=== PATIENT | female | born 1960 | race African-American/Black ===

== ENCOUNTER 2023-03-16 19:33 | Emergency (ER) | payer SELFPAY ==
[~2023-03-16] VITALS: Ht 167.6 cm; Wt 82.0 kg
[2023-03-16 19:56] VITALS: BP 185/78; PULSE 86; RESP 18; TEMP 99.3; O2SAT 100
[2023-03-16] MEDS ORDERED: IBUPROFEN 400MG TABLET PO ONE (20:00)
[2023-03-16] MEDS ORDERED: TETANUS, DIPHTHERIA, PERTUSSIS VAC/PF 0.5ML (>10YR OLD) IM ONE (20:00)
[2023-03-16] MEDS ORDERED: LIDOCAINE HCL 1%/EPI 1:200,000 30 ML VIAL MC ONE (20:00)
[2023-03-16] MEDS ORDERED: ACETAMINOPHEN 325MG TABLET PO NR (20:45)
[2023-03-16] MEDS ORDERED: LIDOCAINE HCL 1%/EPI 1:200,000 30 ML VIAL MC NR (21:30)
[2023-03-16] MEDS ORDERED: IBUPROFEN 100MG/5ML UDC PO ONE (23:00)
[2023-03-16] MEDS ORDERED: CLINDAMYCIN PHOSPHATE 300MG/2ML VIAL IM ONE (23:00)
[2023-03-16] MEDS ORDERED: MORPHINE SULFATE 10 MG/ML CPJ IM ONE (23:00)
[2023-03-16] MEDS ORDERED: CLINDAMYCIN PHOSPHATE 300MG/2ML VIAL IM NR (23:15)
[2023-03-16] MEDS ORDERED: IBUPROFEN 100MG/5ML UDC PO NR (23:15)
[2023-03-16] MEDS ORDERED: CLINDAMYCIN PHOSPHATE 600MG/4ML VIAL IM NR (23:33)
[2023-03-17] MEDS ORDERED: IBUP-2030 MT (00:19)
[2023-03-17] MEDS ORDERED: CLIN-194 MT (00:19)
[2023-03-17] MEDS ORDERED: DOXY100C5 MT (00:19)
== END 2023-03-17 00:29 | disposition home or self-care (01) ==
LOC: ER 19:33
DX: S01.511A Laceration without foreign body of lip, initial encounter (principal); I10 Essential (primary) hypertension; Z88.0 Allergy status to penicillin; W54.0XXA Bitten by dog, initial encounter; Y93.89 Activity, other specified; Y92.89 Other specified places as the place of occurrence of the external cause; Y99.8 Other external cause status
CPT/HCPCS: 73610; 70450; 70486; 90715; 90471; 99285; 96372; J3490 ×3; Z7610 ×3